=== PATIENT | male | born 1970 | race Caucasian/White ===

== ENCOUNTER 2019-05-22 08:00 | Observation (INO) | payer SELFPAY ==
[~2019-05-22] VITALS: Ht 175.3 cm; Wt 84.1 kg
[2019-05-22 08:22] LABS: BASO % 0 % (0-3); EOS % 1 % (0-3); HEMATOCRIT 49.5 % (39.0-53.0); HEMOGLOBIN 16.2 g/dL (13.0-17.5); LYMPH # 1.3 x10^3/uL (1.0-4.8); LYMPH % 17 % (24-48); MEAN CORPUSCULAR HEMOGLOBIN 30 pg (25-35); MEAN CORPUSCULAR HGB CONC 33 g/dL (31-37); MEAN CORPUSCULAR VOLUME 90 fL (79-100); MONO # 0.4 x10^3/uL (0.0-1.1); MONO % 5 % (0-9); NEUT % 78 % (31-73); PLATELET COUNT 261 x10^3/uL (140-400); RED BLOOD COUNT 5.48 x10^6/uL (4.30-5.70); RED CELL DISTRIBUTION WIDTH 13.6 % (11.5-14.5); WHITE BLOOD COUNT 7.7 x10^3/uL (4.0-11.0)
--- NOTE | 2019-05-22 08:23 | PHYS DOC ---
Adult General Chief Complaint Chief Complaint: CHEST PAIN HPI HPI Patient is a 49-year-old male with chest pain. 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 he was doing his physical education test was running 2 miles at 7:30 paced at lap 3 out of 8 began to have left-sided chest tightness as well as numbness down his left arm and shortness of breath he rested for a while tried to finish off still felt very lightheaded and just very tired overall Currently not any chest pain got aspirin from the paramedics patient has no past medical history allergic to penicillin denies smoking no known family history of coronary artery disease although father at a fairly young age All other ROS neg unless otherwise noted in HPI Review of Systems Review of Systems SEE ABOVE Allergies Allergies Allergies Coded Allergies Type Severity Reaction Last Updated Verified Penicillins Allergy Unknown 05/22/19 Yes Physical Exam Physical Exam see above Constitutional: Well developed, well nourished, no acute distress, non-toxic appearance. [] HENT: Normocephalic, atraumatic, bilateral external ears normal, oropharynx moist, no oral exudates, nose normal. [] Eyes: PERRLA, EOMI, conjunctiva normal, no discharge. [] Neck: Normal range of motion, no tenderness, supple, no stridor. [] Cardiovascular:Heart rate regular rhythm, no murmur [] Lungs & Thorax: Bilateral breath sounds clear to auscultation [] Abdomen: Bowel sounds normal, soft, no tenderness, no masses, no pulsatile masses. [] Skin: Warm, dry, no erythema, no rash. [] Back: No tenderness, no CVA tenderness. [] Extremities: No tenderness, no cyanosis, no clubbing, ROM intact, no edema. [] Neurologic: Alert and oriented X 3, normal motor function, normal sensory function, no focal deficits noted. [] Psychologic: Affect normal, judgement normal, mood normal. [] EKG EKG []EKG shows a normal sinus rhythm with a rate of 99 there are some nonspecific inferior and lateral changes there is borderline ST depression in those leads no STEMI no old EKG Radiology/Procedures Radiology/Procedures [] Impressions: FINDINGS: Lungs: Normal lung volume. No pulmonary mass or consolidation. The tracheobronchial tree and hilar structures are normal. Pleura: No pleural effusion or pneumothorax. Heart and Mediastinum: The cardiomediastinal silhouette is normal. The great vessels of the thorax are normal. Bones and Soft Tissues: The bones and soft tissues are within normal limits. IMPRESSION: No acute cardiopulmonary process. Electronically signed by: Grzegorz Cronin MD (05/22/2019 8:51 AM) [facility] DICTATED AND SIGNED BY: GRZEGORZ CRONIN MD DATE: 05/22/19 0851 CC: JACKI WOOD MD; PCP,NO ~ Course & Med Decision Making Course & Med Decision Making Pertinent Labs and Imaging studies reviewed. (See chart for details) []HEART SCORE 4 ADMIT TO JOAO ASPIRIN GIVEN BP GOOD 118 IN ER DDIMER CP FREE IN ER BORDERLINE ST DEPRESSIONS NOTED, STORY HIGHLY CONCERNING Admit to Joao a CT scan pending discussed case at 9:15 Dragon Disclaimer Dragon Disclaimer This electronic medical record was generated, in whole or in part, using a voice recognition dictation system. Departure Departure: Impression: Primary Impression: Chest pain Disposition: ADMITTED INPATIENT Condition: STABLE Referrals: PCP,NO (PCP) HEART Score for Chest Pain PTs The HEART Score for CP Pts HEART Score for Chest Pain: HEART Score for Chest Pain Response (Comments) Value History Highly Suspicious 2 ECG Nonspecific Repolarizatio 1 Age >45 - < 65 1 Risk Factors No Risk Factors 0 Troponin < Normal Limit 0 Total 4 Risk Factors: Risk Factors: DM, Current or recent (<one month) smoker, HTN, HLP, family history of CAD, obesity. Risk Scores: Score 0 - 3: 2.5% MACE over next 6 weeks - Discharge Home Score 4 - 6: 20.3% MACE over next 6 weeks - Admit for Clinical Observation Score 7 - 10: 72.7% MACE over next 6 weeks - Early Invasive Strategies JACKI WOOD MD May 22, 2019 08:23
[2019-05-22 08:32] LABS: ALBUMIN 4.2 g/dL (3.4-5.0); ALBUMIN/GLOBULIN RATIO 1.1 (1.0-1.7); CALCIUM 9.3 mg/dL (8.5-10.1); CREATININE 1.7 mg/dL (0.7-1.3); GFR 43.1; POTASSIUM 3.9 mmol/L (3.5-5.1); TOTAL BILIRUBIN 0.5 mg/dL (0.2-1.0); TOTAL PROTEIN 8.1 g/dL (6.4-8.2)
--- NOTE | 2019-05-22 08:54 | RAD ---
CHEST AP ONLY INDICATION: Chest pain. COMPARISON STUDY: None. FINDINGS: Lungs: Normal lung volume. No pulmonary mass or consolidation. The tracheobronchial tree and hilar structures are normal. Pleura: No pleural effusion or pneumothorax. Heart and Mediastinum: The cardiomediastinal silhouette is normal. The great vessels of the thorax are normal. Bones and Soft Tissues: The bones and soft tissues are within normal limits. IMPRESSION: No acute cardiopulmonary process. Electronically signed by: Donovan Feliciano MD (05/22/2019 8:51 AM) [facility]
--- NOTE | 2019-05-22 09:05 | EKG ---
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
[2019-05-22] MEDS ORDERED: NITROGLYCERIN SUBLINGUAL 0.4 MG BOTTLE OF 25. SL PRN (09:15)
[2019-05-22] MEDS ORDERED: IV NORMAL SALINE 1,000ML 1,000 ML IV ONE (09:15)
[2019-05-22] MEDS ORDERED: IOHEXOL 350 MG/ML 100 ML VIAL. IV ONE (09:30)
[2019-05-22 11:04] VITALS: BP 130/84
--- NOTE | 2019-05-22 12:31 | RAD ---
VQ Scan: Clinical History: Chest pain, left arm numbness. Technique: 9.1 mCi of xenon-133 was administered and spot views were obtained on a gamma camera for a Nuclear Medicine ventilation examination. 5.5 mCi of Tc 99m MAA was administered intravenously and spot views were obtained on the gamma camera for a Nuclear Medicine perfusion examination. Static images were reviewed as a V/Q scan in order to exclude pulmonary embolism. Findings: There is mild diffuse heterogeneity of activity on the ventilation study. Perfusion images are homogeneous without perfusion defects. This is very low probability for pulmonary embolism based on the modified PIOPED criteria. Impression: Very low probability for pulmonary embolism. Electronically signed by: Gustavo Buchanan MD (05/22/2019 12:28 PM) [id number]
--- NOTE | 2019-05-22 13:29 | HP ---
ADMIT DATE: 05/22/2019 HISTORY OF PRESENT ILLNESS: The patient is a 49-year-old male patient who came to the Emergency Room complaining of chest pain. 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 He was doing his physical education test, was running 2 miles around 07:30, paced at lap 2/8, began to have left-sided chest tightness as well as numbness down to his left arm, shortness of breath, as well as some nausea, but no vomiting. He was also diaphoretic, felt very lightheaded, just very tired overall. 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 He has no risk factors for premature coronary artery disease and that he has no hypertension, diabetes, or hyperlipidemia. He does not smoke, and although his father at early age, he in a motor vehicle accident. PAST SURGICAL HISTORY: Significant for appendectomy when he was very young. ALLERGIES: HE IS ALLERGIC TO PENICILLIN. MEDICATIONS: He is currently on no medication. FAMILY HISTORY: He has 1 brother and 2 sisters, all younger. His father in his 40s in a motor vehicle accident. His mother is still alive at age of 66 and she is healthy. SOCIAL HISTORY: He is , has 2 daughters and 1 son. He never smoked. Drinks beer occasionally. He does not use any drugs. 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 REVIEW OF SYSTEMS: The patient denied any blurring of vision, cataract, glaucoma, or macular degeneration. Denied any earache, tinnitus, or sensorineural deafness. Denied any nosebleeds, stuffy nose, or postnasal drip. Denied any sore throat, sore tongue, toothache, hoarseness of voice, or difficulty swallowing. He did complain of nausea, but no vomiting, no diarrhea or constipation. Denied any hematemesis, melena, or hematochezia. Denied any dysuria, frequency, or hematuria. Did complain of chest pain, but at the time I saw him, he was chest pain free. Denied any orthopnea or paroxysmal nocturnal dyspnea. Denied any cough, phlegm, or hemoptysis. When he arrived to the Emergency Room, he looked well and was clearly in no apparent respiratory distress. No pallor, jaundice, cyanosis, or thyromegaly. No jugular venous distention. No limb edema. VITAL SIGNS: His heart rate was 104, blood pressure was 118/81, temperature was 97.7, respiratory rate was 18, and oxygen saturation was 96% on room air. HEAD, EYES, EARS, NOSE, AND THROAT: Showed he is normocephalic, atraumatic. NECK: Supple. HEART: Showed normal first and second heart sounds. No gallop or murmur. CHEST: Clear to auscultation. No crepitation or rhonchi. ABDOMEN: Distended, soft, nontender. No guarding or rigidity. No organomegaly. All hernial orifices intact. Bowel sounds normal. NEUROLOGIC: He was awake, alert, responding appropriately. All cranial nerves intact. EXTREMITIES: He moves extremities without difficulty. He ambulates without assistance or assistive devices. LABORATORY DATA: His lab work showed a white cell count of 7700, hemoglobin 16, hematocrit 49, MCV 90, and platelet count 261,000 with normal manual differential. Serum sodium was 139, potassium 3.9, chloride 101, bicarbonate 21, anion gap of 17, BUN 18, creatinine 1.7, estimated GFR was 43 mL per minute. His glucose was 151. His calcium was 9.3. Total bilirubin, AST, ALT, alkaline phosphatase were normal. His troponin was less than 0.017. Total protein was 8.1 and albumin was 4.1. His D-dimer was 0.78. He did have a chest x-ray, which showed that his lungs are normal. No pulmonary masses or consolidation. The tracheobronchial tree and hilar structures are normal. There is no pleural effusion or pneumothorax. Heart and mediastinum, the cardiomediastinal silhouette is normal. The great vessels of the thorax are normal. The bones and soft tissues are within normal range. Given his abnormal kidney function, he had had a lung ventilation/perfusion scan, which basically revealed mild diffuse heterogeneity of activity on the ventilation study. The perfusion images are homogenous without perfusion defects and this a very low probability for pulmonary embolism based on the modified PIOPED criteria. His first set of troponin was less than 0.017 and his EKG apparently showed that he was in normal sinus rhythm at a rate of 99, nonspecific inferior and lateral changes. There is borderline ST depression in those leads. No ST segment elevation and no old EKG to compare with. 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 PLAN: Plan is obviously to do 2 more sets of cardiac enzyme and consult the Cardiology team. We will check his fasting lipid profile and decide the further management accordingly. AMRIT SHEPHERD MD DR: AKBAR/heather JOB#: [id number] / [id number]
[2019-05-22 16:17] VITALS: BP 120/75
[2019-05-22] MEDS ORDERED: ASPI-630 PO (17:54)
[2019-05-22] MEDS ORDERED: NITR0.4T22 SL (17:58)
--- NOTE | 2019-05-23 08:29 | PDOC ---
PROVIDER NOTE PROVIDER NOTE PROVIDER NOTE LATE ENTRY FOR 05/22/2019 Reason for consultation chest pain History of present illness 49-year-old man without any significant past medical history [facility] in the setting of chest pain. He is an active individual and is in the and apparently was doing his physical evaluation and approximately 1 mile into the 2 mile run he began experiencing chest pain and some shortness of breath along the left breast with some tingling down his left arm. This resolved after he stopped running. He denied any associated palpitations, lig htheadedness, dizziness, orthopnea or PND. This has never occurred for him before. Due to this concern he arrived to the ER. Initial evaluation the ER revealed a nonspecific EKG, normal vital signs and negative cardiac enzymes. 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 He denies any alcohol, tobacco or illicit drug use. Allergies to penicillin Current cardiovascular medications none Review systems is negative unless otherwise mentioned above in history of present illness Physical examination The patient appeared well nourished and normally developed. Head exam is unremarkable. No scleral icterus or corneal arcus noted. Neck is without jugular venous distension, thyromegaly, or carotid bruits. Carotid upstrokes are brisk bilaterally. Lungs are clear to auscultation and percussion. Cardiac exam reveals the PMI to be normally sized and situated. Rhythm is regular. First and second heart sounds normal. No murmurs, rubs or gallops. Abdominal exam reveals normal bowel sounds, no masses, no organomegaly and no aortic enlargement. Extremities are nonedematous and both femoral and pedal pulses are normal. Msk: No traumua Neuro: No focal deficits Laboratory studies are unremarkable EKG is unremarkable Impression: 1. Chest pain of unclear etiology. He has very minimal risk factors and currently appears to be a low risk presentation with negative cardiac enzymes and an unremarkable EKG. 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 Okay to discharge the patient from a cardiac perspective and we will plan for expedited outpatient stress testing in the next one week. Discussed with the patient and he is in agreement with this plan. Thank you for this consultation JIM HURD MD May 23, 2019 08:29
== END 2019-05-22 19:14 | disposition home or self-care (01) ==
LOC: ER 08:00 → 1 SOUTH 10:35 → INTOOBSV 10:35 → 1 SOUTH 14:16
PROVIDERS: ADMIT Internal Medicine; ATTEND Internal Medicine
DX: R07.89 Other chest pain (principal); R42 Dizziness and giddiness; R11.0 Nausea; R06.02 Shortness of breath; Z90.49 Acquired absence of other specified parts of digestive tract; Z88.0 Allergy status to penicillin
CPT/HCPCS: 36415; 71045; 78582; 80053; 82550; 84484; 85025; 85379; 93005; 96360; 99285; A9540; A9558; G0378; G0379; 96374; J7030